=== PATIENT | female | born 1940 | race Caucasian/White ===

== ENCOUNTER 2023-11-18 06:43 | Day surgery (SDC) | payer MEDICARE, OTHER ==
[2023-11-12 12:19] LABS: BASOPHILS # (AUTO) 0.08 K/uL (0.00-0.20); BASOPHILS % (AUTO) 0.7 % (0.0-5.0); EOSINOPHILS # (AUTO) 0.16 K/uL (0.00-0.70); EOSINOPHILS % (AUTO) 1.4 % (0.0-8.0); HEMATOCRIT 44.1 % (36-48); IMMATURE GRANULOCYTE ABSOLUTE 0.05 K/uL (0-1); LYMPHOCYTES # (AUTO) 1.9 K/uL (1.0-4.8); LYMPHOCYTES % (AUTO) 17.2 % (21.0-51.0); MEAN CORPUSCULAR HGB CONC 31.3 g/dL (32.0-36.0); MEAN CORPUSCULAR VOLUME 99.1 fL (79-99); MONOCYTES % (AUTO) 8.5 % (3.0-13.0); NEUTROPHILS % (AUTO) 71.8 % (40.0-77.0); PLATELET COUNT (AUTO) 268 K/uL (130-400); RED BLOOD CELL COUNT(AUTO) 4.45 MIL/uL (4.00-5.50); RED CELL DISTRIBUTION WIDTH 13.2 % (11.0-15.5); WHITE BLOOD COUNT (AUTO) 11.2 K/uL (4.8-10.8)
[2023-11-12 12:37] LABS: CREATININE 1.1 mg/dL (0.5-1.5); POTASSIUM 4.5 mmol/L (3.5-5.1)
[2023-11-12 13:00] LABS: INR 1.16 (0.85-1.15); PROTHROMBIN TIME 13.3 SEC (9.6-11.6)
[2023-11-12 13:01] LABS: PARTIAL THROMBOPLASTIN TIME 39.1 SEC (26.3-35.5)
[2023-11-12 13:02] VITALS: BP 161/80; PULSE 75; RESP 16
[2023-11-12 13:19] LABS: APPEARANCE,URINE TURBID (CLEAR); BILIRUBIN,URINE NEGATIVE (NEGATIVE); COLOR,URINE LIGHT-ORANGE (YELLOW); GLUCOSE, URINE (UA) NEGATIVE (NEGATIVE); KETONES,URINE NEGATIVE (NEGATIVE); LEUKOCYTE ESTERASE ,URINE 500 Leu/uL (NEGATIVE); NITRATE,URINE NEGATIVE (NEGATIVE); OCCULT BLOOD,URINE SMALL (NEGATIVE); PH,URINE 5.5 (5.0-8.0); PROTEIN,URINE 20 mg/dL (NEGATIVE); UROBILINOGEN,URINE 0.2 mg/dL (0.2-1.0)
[2023-11-12 13:30] LABS: ADD UA MICROSCOPIC YES
[2023-11-12 13:43] LABS: BACTERIA,URINE MOD /HPF (None Seen); NON-SQUAMOUS EPITHELIAL CELL 2 /HPF (0-2); SQUAMOUS EPITHELIAL CELL,UR RARE /HPF (0-2); WBC CLUMP MANY /HPF (0-1); WBC,URINE TNTC /HPF (0-1); YEAST,URINE BUDDING MANY /HPF (None Seen)
[~2023-11-18] VITALS: Ht 161.3 cm; Wt 58.7 kg
[2023-11-18] VITALS (17 sets, daily range): BP systolic 103–136; BP diastolic 63–81; PULSE 63–85; RESP 13–19
[~2023-11-18 06:43] MED LIST: APIX2.5T PO; ATOR40TA71 PO; LACT10PA5 PO; LEVO88TA4 PO; METO-391 PO; OLAN5TAB76 PO
[2023-11-18] MEDS ORDERED: LACTATED RINGERS 1000ML 1,000 ML IV ONE (07:11)
[2023-11-18] MEDS ORDERED: CEFTRIAXONE 1G VIAL ONE (07:11)
[2023-11-18] MEDS ORDERED: BOTULINUM TOXIN TYPE A 100 UNITS/VIAL INJ SCH (08:00)
[2023-11-18] MEDS ORDERED: MIDAZOLAM HCL 1 MG/ML 2ML VIAL ONE (08:26)
[2023-11-18] MEDS ORDERED: PROPOFOL 10 MG/ML 20ML VIAL IV ONE (08:27)
[2023-11-18] MEDS ORDERED: FENTANYL CITRATE PF 50 MCG/1 ML 2ML VIAL ONE (08:27)
[2023-11-18] MEDS ORDERED: CEFAZOLIN SODIUM 2 GM VIAL IVPB ONE (09:01)
[2023-11-18] MEDS ORDERED: BOTULINUM TOXIN TYPE A 100 UNITS/VIAL INJ ONE (09:16)
[2023-11-18] MEDS ORDERED: EPHEDRINE SULFATE 50 MG/ML AMPULE ONE (09:19)
[2023-11-18] MEDS ORDERED: FLUMAZENIL 0.1MG/1ML 5ML VIAL IV ONE (09:43)
[2023-11-18] MEDS ORDERED: CEPH500B PO (10:42)
== END 2023-11-18 11:30 | disposition home or self-care (01) ==
LOC: DAH 06:43
PROVIDERS: ATTEND Urology
DX: N39.41 Urge incontinence (principal); N32.81 Overactive bladder; N32.89 Other specified disorders of bladder; I25.2 Old myocardial infarction; I48.91 Unspecified atrial fibrillation; I10 Essential (primary) hypertension; E03.9 Hypothyroidism, unspecified; E66.01 Morbid (severe) obesity due to excess calories; Z86.73 Personal history of transient ischemic attack (TIA), and cerebral infarction without residual deficits; Z79.02 Long term (current) use of antithrombotics/antiplatelets; Z68.22 Body mass index [BMI] 22.0-22.9, adult; Z79.01 Long term (current) use of anticoagulants; Z79.890 Hormone replacement therapy
CPT/HCPCS: 80048; 85025; 85610; 85730; 87077; 87088; 87186; 81001; 36415; 71045; 93005; 52287; A6260; A4663; J7120 ×2; J3010; J3490 ×2; J0696; J2250; J2704; J0585; J0690; A4358; A4215 ×2; A4520; A4223; A4222; A4221; A4600

== ENCOUNTER 2024-05-25 06:46 | Day surgery (SDC) | payer MEDICARE, OTHER ==
[2024-05-19 12:02] VITALS: BP 168/74; PULSE 75; RESP 18
[2024-05-19 12:35] LABS: ADD UA MICROSCOPIC NO; APPEARANCE,URINE CLEAR (CLEAR); BILIRUBIN,URINE NEGATIVE (NEGATIVE); COLOR,URINE COLORLESS (YELLOW); GLUCOSE, URINE (UA) NEGATIVE (NEGATIVE); KETONES,URINE NEGATIVE (NEGATIVE); LEUKOCYTE ESTERASE ,URINE NEGATIVE Leu/uL (NEGATIVE); NITRATE,URINE NEGATIVE (NEGATIVE); OCCULT BLOOD,URINE NEGATIVE (NEGATIVE); PH,URINE 6.5 (5.0-8.0); PROTEIN,URINE NEGATIVE (NEGATIVE); UROBILINOGEN,URINE 0.2 mg/dL (0.2-1.0)
[2024-05-25] VITALS (17 sets, daily range): BP systolic 80–156; BP diastolic 52–86; PULSE 60–74; RESP 10–18
[~2024-05-25] VITALS: Ht 160 cm; Wt 58.7 kg
[~2024-05-25 06:46] MED LIST changes: +FAMO-136 PO; +FEXO-263 PO; -LACT10PA5 PO; -METO-391 PO; +METO50TA9 PO; -OLAN5TAB76 PO; +TERB250T89 PO
[2024-05-25] MEDS ORDERED: CEFTRIAXONE 1G VIAL ONE (07:12)
[2024-05-25] MEDS ORDERED: LIDOCAINE PF 100MG/5ML (2%) SYRINGE 5ML ONE (07:29)
[2024-05-25] MEDS ORDERED: DEXAMETHASONE SOD PHOSPHATE 10MG/ML 1ML VIAL ONE (07:29)
[2024-05-25] MEDS ORDERED: NEOSTIGMINE METHYLSULFATE 1MG/ML IV ONE (07:31)
[2024-05-25] MEDS ORDERED: PROPOFOL 10 MG/ML 20ML VIAL IV ONE (07:31)
[2024-05-25] MEDS ORDERED: MIDAZOLAM HCL 1 MG/ML 2ML VIAL ONE (07:31)
[2024-05-25] MEDS ORDERED: ROCURONIUM BROMIDE 10MG/1ML 5ML VL ONE (07:31)
[2024-05-25] MEDS ORDERED: GLYCOPYRROLATE 0.2 MG/ML 5 ML VIAL ONE (07:31)
[2024-05-25] MEDS ORDERED: SUCCINYLCHOLINE CHLORIDE 20 MG/ML 10 ML VIAL ONE (07:31)
[2024-05-25] MEDS ORDERED: ONDANSETRON 4MG INJ ONE (07:31)
[2024-05-25] MEDS ORDERED: FENTANYL CITRATE PF 50 MCG/1 ML 2ML VIAL ONE (07:32)
[2024-05-25 07:49] LABS: BASOPHILS # (AUTO) 0.09 K/uL (0.00-0.20); BASOPHILS % (AUTO) 1.3 % (0.0-5.0); EOSINOPHILS # (AUTO) 0.27 K/uL (0.00-0.70); EOSINOPHILS % (AUTO) 3.8 % (0.0-8.0); HEMATOCRIT 48.2 % (36-48); IMMATURE GRANULOCYTE ABSOLUTE 0.02 K/uL (0-1); LYMPHOCYTES # (AUTO) 2.1 K/uL (1.0-4.8); LYMPHOCYTES % (AUTO) 29.3 % (21.0-51.0); MEAN CORPUSCULAR HEMOGLOBIN 30.5 pg (27.0-33.0); MEAN CORPUSCULAR HGB CONC 32.6 g/dL (32.0-36.0); MEAN CORPUSCULAR VOLUME 93.6 fL (79-99); MONOCYTES # (AUTO) 0.5 K/uL (0.1-1.0); MONOCYTES % (AUTO) 7.5 % (3.0-13.0); NEUTROPHILS # (AUTO) 4.1 K/uL (1.8-7.7); NEUTROPHILS % (AUTO) 57.8 % (40.0-77.0); PLATELET COUNT (AUTO) 266 K/uL (130-400); RED BLOOD CELL COUNT(AUTO) 5.15 MIL/uL (4.00-5.50); WHITE BLOOD COUNT (AUTO) 7.1 K/uL (4.8-10.8)
[2024-05-25 08:03] LABS: CREATININE 1.2 mg/dL (0.5-1.0); INR 1.04 (0.85-1.15); POTASSIUM 4.5 mmol/L (3.5-5.1); PROTHROMBIN TIME 11.2 SEC (9.6-11.6)
[2024-05-25] MEDS: LACTATED RINGERS 1000ML 1,000 ML IV ONE (08:13)
[2024-05-25] MEDS ORDERED: LIDOCAINE HCL 2% JELLY 5 ML ONE (08:43)
[2024-05-25] MEDS: BOTULINUM TOXIN TYPE A 100 UNITS/VIAL INJ SCH (09:10)
== END 2024-05-25 11:05 | disposition home or self-care (01) ==
LOC: DAH 06:46
PROVIDERS: ATTEND Urology
DX: N39.41 Urge incontinence (principal); R35.0 Frequency of micturition; I44.4 Left anterior fascicular block; I48.91 Unspecified atrial fibrillation; F03.90 Unspecified dementia, unspecified severity, without behavioral disturbance, psychotic disturbance, mood disturbance, and anxiety; I10 Essential (primary) hypertension; E03.9 Hypothyroidism, unspecified; Z79.01 Long term (current) use of anticoagulants; Z86.73 Personal history of transient ischemic attack (TIA), and cerebral infarction without residual deficits; Z79.899 Other long term (current) drug therapy
CPT/HCPCS: 36415; 80048; 81003; 85025; 85610; 85730; 87086; 93005; J0330; J0585; J0696; J1100; J2001; J2250; J2405; J2704; J2710; J3010; J3490; J7120; A4213; A4215; A4221; A4222; A4223; A4358; A4600; A4663; A6260